=== PATIENT | male | born 1985 | race African-American/Black ===

== ENCOUNTER 2019-01-22 02:29 | Emergency (ER) | payer OTHER ==
[~2019-01-22] VITALS: Ht 175.3 cm; Wt 81.7 kg
[2019-01-22] MEDS ORDERED: TRIAMCINOLONE A80 G2 TOP (02:40)
[2019-01-22 04:15] LABS: CALCIUM 9.6 mg/dL (8.5-10.1); CREATININE 1.3 mg/dL (0.7-1.3); POTASSIUM 3.9 mmol/L (3.5-5.1)
[2019-01-22] MEDS ORDERED: PREDNISONE50 MG PO (05:44)
[2019-01-22] MEDS ORDERED: ZPAK PO (05:44)
[2019-01-22] MEDS ORDERED: VENTOLIN HFA 1818 GM INH (05:45)
[2019-01-22 06:10] VITALS: BP 109/42
== END 2019-01-22 06:17 | disposition home or self-care (01) ==
LOC: ER 02:29
PROVIDERS: Emergency Medicine
DX: J45.901 Unspecified asthma with (acute) exacerbation (principal); B96.89 Other specified bacterial agents as the cause of diseases classified elsewhere; F17.210 Nicotine dependence, cigarettes, uncomplicated; Z88.6 Allergy status to analgesic agent

== ENCOUNTER 2019-01-28 23:51 | Emergency (ER) | payer OTHER ==
[~2019-01-28] VITALS: Ht 175.3 cm; Wt 81.7 kg
[~2019-01-28 23:51] MED LIST: PREDNISONE50 MG PO; TRIAMCINOLONE A80 G2 TOP; VENTOLIN HFA 1818 GM INH; ZPAK PO
[2019-01-29 01:15] VITALS: BP 122/64
== END 2019-01-29 01:15 | disposition home or self-care (01) ==
LOC: ER 23:51
DX: J06.9 Acute upper respiratory infection, unspecified (principal); F17.210 Nicotine dependence, cigarettes, uncomplicated; Z88.6 Allergy status to analgesic agent

== ENCOUNTER 2019-08-13 12:48 | Emergency (ER) | payer OTHER ==
[~2019-08-13] VITALS: Ht 172.7 cm; Wt 77.1 kg
[2019-08-13 14:45] VITALS: BP 128/56
== END 2019-08-13 14:47 ==
LOC: ER 12:48
DX: S21.212A Laceration without foreign body of left back wall of thorax without penetration into thoracic cavity, initial encounter (principal); S61.432A Puncture wound without foreign body of left hand, initial encounter; F17.210 Nicotine dependence, cigarettes, uncomplicated; Z79.899 Other long term (current) drug therapy; Z88.8 Allergy status to other drugs, medicaments and biological substances; W17.89XA Other fall from one level to another, initial encounter; Y93.39 Activity, other involving climbing, rappelling and jumping off; Y92.89 Other specified places as the place of occurrence of the external cause; Y99.8 Other external cause status

== ENCOUNTER 2019-11-10 15:51 | Emergency (ER) | payer OTHER ==
[~2019-11-10] VITALS: Ht 177.8 cm; Wt 81.7 kg
[2019-11-10 15:51] VITALS: BP 131/57
[2019-11-10 16:10] LABS: URINE BILIRUBIN NEGATIVE (Negative); URINE BLOOD TRACE (Negative); URINE CLARITY CLEAR; URINE COLOR YELLOW; URINE GLUCOSE-RANDOM* NEGATIVE (Negative); URINE KETONES NEGATIVE (Negative); URINE LEUKOCYTES-REFLEX TRACE (Negative); URINE NITRITE-REFLEX NEGATIVE (Negative); URINE PROTEIN (DIPSTICK) TRACE (Negative); URINE SPECIFIC GRAVITY >= 1.030 (1.005-1.035); URINE UROBILINOGEN 0.2 E.U./dl (0.2-1.0)
== END 2019-11-10 17:22 | disposition home or self-care (01) ==
LOC: ER 15:51
PROVIDERS: Nurse Practitioner Family
DX: N34.2 Other urethritis (principal); F17.210 Nicotine dependence, cigarettes, uncomplicated; F12.90 Cannabis use, unspecified, uncomplicated; Z88.6 Allergy status to analgesic agent

== ENCOUNTER 2021-01-16 21:24 | Emergency (ER) | payer BC, OTHER ==
[~2021-01-16] VITALS: Ht 177.8 cm; Wt 81.7 kg
[2021-01-17] MEDS ORDERED: DOXYCYCLINE 10100 MG PO ×2 (00:33→00:38)
[2021-01-17 01:09] VITALS: BP 117/76
== END 2021-01-17 01:10 | disposition home or self-care (01) ==
LOC: ER 21:24
DX: A63.8 Other specified predominantly sexually transmitted diseases (principal); R36.9 Urethral discharge, unspecified; F17.210 Nicotine dependence, cigarettes, uncomplicated; Z79.51 Long term (current) use of inhaled steroids; Z79.899 Other long term (current) drug therapy; Z88.6 Allergy status to analgesic agent; Z88.5 Allergy status to narcotic agent; Z91.013 Allergy to seafood

== ENCOUNTER 2021-07-13 20:08 | Emergency (ER) | payer OTHER, BC ==
[~2021-07-13] VITALS: Ht 177.8 cm; Wt 81.7 kg
[~2021-07-13 20:08] MED LIST changes: +DOXYCYCLINE 10100 MG PO
[2021-07-13] MEDS ORDERED: FLEXERIL PO ×2 (20:34)
[2021-07-13] MEDS ORDERED: LIDODERM1 EACH TOP (20:34)
[2021-07-13] MEDS ORDERED: IBUPROFEN 800800 MG PO (20:34)
[2021-07-13 20:54] VITALS: BP 124/69
== END 2021-07-13 20:52 | disposition home or self-care (01) ==
LOC: ER 20:08
DX: S16.1XXA Strain of muscle, fascia and tendon at neck level, initial encounter (principal); F17.210 Nicotine dependence, cigarettes, uncomplicated; Z79.891 Long term (current) use of opiate analgesic; Z79.899 Other long term (current) drug therapy; Z88.8 Allergy status to other drugs, medicaments and biological substances; Z91.013 Allergy to seafood; Z79.51 Long term (current) use of inhaled steroids; V49.00XA Driver injured in collision with unspecified motor vehicles in nontraffic accident, initial encounter; Y93.89 Activity, other specified; Y92.89 Other specified places as the place of occurrence of the external cause; Y99.8 Other external cause status

== ENCOUNTER 2021-07-17 18:32 | Emergency (ER) | payer OTHER, BC ==
[~2021-07-17] VITALS: Ht 154.9 cm; Wt 85.7 kg
[~2021-07-17 18:32] MED LIST changes: +FLEXERIL PO; +IBUPROFEN 800800 MG PO; +LIDODERM1 EACH TOP
[2021-07-17] MEDS ORDERED: NOHOMEMEDICATIONS (19:00)
[2021-07-17] MEDS ORDERED: MELOXICAM15 MG PO (19:47)
[2021-07-17 20:12] VITALS: BP 106/57
== END 2021-07-17 20:13 | disposition home or self-care (01) ==
LOC: ER 18:32
DX: S16.1XXA Strain of muscle, fascia and tendon at neck level, initial encounter (principal); F17.210 Nicotine dependence, cigarettes, uncomplicated; Z88.6 Allergy status to analgesic agent; Z88.5 Allergy status to narcotic agent; Z91.013 Allergy to seafood; V89.2XXA Person injured in unspecified motor-vehicle accident, traffic, initial encounter; Y93.89 Activity, other specified; Y92.89 Other specified places as the place of occurrence of the external cause; Y99.8 Other external cause status